=== PATIENT | female | born 1990 | race Caucasian/White ===

== ENCOUNTER 2016-07-24 13:18 | Emergency (ER) | payer OTHER ==
[2016-07-24 13:25] VITALS: TEMP 97.5
[2016-07-24 14:14] LABS: COLOR PALE YELLOW; LEUKOCYTE ESTERASE,URINE NEGATIVE (NEGATIVE); NITRITE,URINE NEGATIVE (NEGATIVE)
[2016-07-24 14:22] LABS: % IMMATURE GRANULYOCYTES 0.1 % (0.0-1.1); ABSOLUTE IMMATURE GRANULOCYTES 0.01 10^3/uL (0.00-0.10); ADD DIFF? NO; ADD MORPH? NO; ADD SCAN? NO; ATYPICAL LYMPHOCYTE FLAG 0 (0-99); FRAGMENT RBC FLAG 0 (0-99); HEMATOCRIT 43.9 % (38.0-47.0); HEMOGLOBIN 14.6 g/dL (12.6-16.3); LEFT SHIFT FLG 0 (0-99); LIPEMIA HEMOLYSIS FLAG 80 (0-99); MEAN CELL HEMOGLOBIN 30.7 pg (27.9-34.1); MEAN CELL HEMOGLOBIN CONCENTR. 33.3 g/dL (32.4-36.7); MEAN CELL VOLUME 92.4 fL (81.5-99.8); PLATELET CLUMPS FLAG 10 (0-99); PLATELET COUNT 250 10^3/uL (150-400); RED BLOOD CELL COUNT 4.75 10^6/uL (4.18-5.33); RED CELL DISTRIBUTION WIDTH 12.9 % (11.5-15.2)
[2016-07-24] MEDS ORDERED: ONDANSETRON 4 MG/2 ML VIAL IVP ONE (14:28)
[2016-07-24] MEDS ORDERED: HYDROmorphONE/DILAUDID 1 MG/ML SYR IVP ONE (14:28)
[2016-07-24 14:38] LABS: ANION GAP 13 mEq/L (8-16); CALCIUM 9.9 mg/dL (8.5-10.4); CARBON DIOXIDE 26 mEq/l (22-31); CHLORIDE 101 mEq/L (97-110); CREATININE 0.9 mg/dL (0.6-1.0); GLOMERULAR FILTRATION RATE > 60; GLUCOSE 89 mg/dL (70-100); POTASSIUM 4.1 mEq/L (3.5-5.2); SODIUM 140 mEq/L (134-144)
[2016-07-24 16:29] VITALS: BP 124/76; PULSE 78; RESP 16; O2SAT 95
--- NOTE | 2016-07-24 16:29 | EDPHY ---
H & P Time Seen by Provider: 07/24/16 14:00 HPI/ROS: HPI: 25-year-old female presents to emergency department with chief concern left lower quadrant pelvic pain. Reports 9/10 constant, sharp, cramping left pelvic pain that onset suddenly 3 days ago associated with nausea. Pain resolved yesterday and she felt fine. Pain returned upon awakening this morning and was constant and 9/10. Associated with nausea. Denies fever, chills, myalgias, URI symptoms, shortness of breath, chest pain, vomiting, diarrhea, urinary symptoms, back or flank pain, unusual vaginal discharge, recent vulvovaginal lesions, STI. LMP 10 days ago. Noted her IUD string significantly shorter in the past 2 days. No other significant past medical history. She is visiting from [place]. ROS:10 point review of systems is negative other than as stated in HPI Past Medical/Surgical History: Breast augmentation, tonsillectomy Social History: Lives in [facility] Smoking Status: Never smoked Physical Exam: Vital signs stable, reviewed by me General: Awake, alert, calm, cooperative. No acute distress. Head: Normalocephalic. Atraumatic. EENT: PERRLA. EOMI. No pallor or injection. Anicteric. No nystagmus. No injection. Neck: Supple, nontender. No lymphadenopathy. Full range of motion. No meningismus. Respiratory: Breathing unlabored. Breath sounds equal bilaterally and clear to auscultation. No adventitious sounds. CV: Chest nontender, atraumatic. Heart rate regular. No murmur, distal pulses 2+ bilaterally. Brisk cap refill all extremities. GI: Abdomen soft, the left lower quadrant pain to deep palpation without rebound or guarding. Bowel sounds normoactive and positive x4 quadrants. : No CVA or flank tenderness. Neuro: Alert. Oriented x 3. Speech clear. Nonfocal cranial nerves throughout. Sensation intact all extremities. Skin: Skin warm, dry, intact. Extremities: Full range of motion in all 4 extremities. Strength 5+ all extremities. Constitutional: Initial Vital Signs Temperature (C) 36.4 C 07/24/16 13:22 Heart Rate 74 07/24/16 13:22 Respiratory Rate 18 07/24/16 13:22 Blood Pressure 124/79 H 07/24/16 13:22 O2 Sat (%) 98 07/24/16 13:22 O2 Delivery Mode Room Air Allergies/Adverse Reactions: shellfish derived Allergy (Verified 07/24/16 13:26) Home Medications: Medication Instructions Recorded Hydrocodone/Acetaminophen [[place] 1 - 2 tab PO Q6H PRN #6 tab 07/24/16 5/325 (*)] Medical Decision Making ED Course/Re-evaluation: 25-year-old female presents to emergency department with left lower quadrant abdominal pain. Reports noticeably shorter IUD string over the past 2 days. IV started. Blood drawn. Urine obtained. Patient given 0.5 mg IV Dilaudid and 4 mg IV Zofran. 1500: After Dilaudid, pain now 2/10. She has no nausea. Ultrasound pending. 1530: Ultrasound shows a malpositioned IUD with left strut extending into the left side of the myometrium. IUD removed successfully without incident. Patient tolerated. Pain immediately relieved after removal of IUD. She has some mild cramping but the sharp left-sided pain has resolved with removal. She has been counseled regarding follow-up with primary care upon return to [place]. She agrees to do so. She has been counseled regarding when to return for worsening symptoms. Differential Diagnosis: Differential diagnosis includes but is not limited to ovarian cyst, ovarian torsion, ectopic , constipation, IUD malfunction - Data Points Laboratory Results: Laboratory Results 07/24/16 14:11 07/24/16 14:11 07/24/16 07/24/16 07/24/16 14:11 14:11 14:00 WBC 6.87 10^3/uL 10^3/uL (3.80-9.50) RBC 4.75 10^6/uL 10^6/uL (4.18-5.33) Hgb 14.6 g/dL g/dL (12.6-16.3) Hct 43.9 % % (38.0-47.0) MCV 92.4 fL fL (81.5-99.8) MCH 30.7 pg pg (27.9-34.1) MCHC 33.3 g/dL g/dL (32.4-36.7) RDW 12.9 % % (11.5-15.2) Plt Count 250 10^3/uL 10^3/uL (150-400) MPV 11.0 fL fL (8.7-11.7) Neut % (Auto) 61.1 % % (39.3-74.2) Lymph % (Auto) 31.1 % % (15.0-45.0) Gage % (Auto) 6.1 % % (4.5-13.0) Eos % (Auto) 1.0 % % (0.6-7.6) Baso % (Auto) 0.6 % % (0.3-1.7) Nucleat RBC Rel Count 0.0 % % (0.0-0.2) Absolute Neuts (auto) 4.19 10^3/uL 10^3/uL (1.70-6.50) Absolute Lymphs (auto) 2.14 10^3/uL 10^3/uL (1.00-3.00) Absolute Monos (auto) 0.42 10^3/uL 10^3/uL (0.30-0.80) Absolute Eos (auto) 0.07 10^3/uL 10^3/uL (0.03-0.40) Absolute Basos (auto) 0.04 10^3/uL 10^3/uL (0.02-0.10) Absolute Nucleated RBC 0.00 10^3/uL 10^3/uL (0-0.01) Immature Gran % 0.1 % % (0.0-1.1) Immature Gran # 0.01 10^3/uL 10^3/uL (0.00-0.10) Sodium 140 mEq/L mEq/L (134-144) Potassium 4.1 mEq/L mEq/L (3.5-5.2) Chloride 101 mEq/L mEq/L (97-110) Carbon Dioxide 26 mEq/l mEq/l (22-31) Anion Gap 13 mEq/L mEq/L (8-16) BUN 13 mg/dL mg/dL (7-23) Creatinine 0.9 mg/dL mg/dL (0.6-1.0) Estimated GFR > 60 Glucose 89 mg/dL mg/dL (70-100) Calcium 9.9 mg/dL mg/dL (8.5-10.4) Urine Color PALE YELLOW Urine Appearance CLEAR Urine pH 6.0 (5.0-7.5) Ur Specific [place] 1.010 (1.002-1.030) Urine Protein NEGATIVE (NEGATIVE) Urine Ketones NEGATIVE (NEGATIVE) Urine Blood NEGATIVE (NEGATIVE) Urine Nitrate NEGATIVE (NEGATIVE) Urine Bilirubin NEGATIVE (NEGATIVE) Urine Urobilinogen NEGATIVE EU EU (0.2-1.0) Ur Leukocyte Esterase NEGATIVE (NEGATIVE) Ur Culture Indicated? NOT INDICATED (NI) Urine Glucose NEGATIVE (NEGATIVE) Urine Test 07/24/16 14:00 WBC RBC Hgb Hct MCV MCH MCHC RDW Plt Count MPV Neut % (Auto) Lymph % (Auto) Gage % (Auto) Eos % (Auto) Baso % (Auto) Nucleat RBC Rel Count Absolute Neuts (auto) Absolute Lymphs (auto) Absolute Monos (auto) Absolute Eos (auto) Absolute Basos (auto) Absolute Nucleated RBC Immature Gran % Immature Gran # Sodium Potassium Chloride Carbon Dioxide Anion Gap BUN Creatinine Estimated GFR Glucose Calcium Urine Color Urine Appearance Urine pH Ur Specific [place] Urine Protein Urine Ketones Urine Blood Urine Nitrate Urine Bilirubin Urine Urobilinogen Ur Leukocyte Esterase Ur Culture Indicated? Urine Glucose Urine Test NEGATIVE Medications Given: Discontinued Medications Hydromorphone HCl (Dilaudid) 1 mg IVP EDNOW ONE Stop: 07/24/16 14:29 Last Admin: 07/24/16 14:36 Dose: 1 mg Ondansetron HCl (Zofran) 4 mg IVP EDNOW ONE Stop: 07/24/16 14:29 Last Admin: 07/24/16 14:36 Dose: 4 mg Departure - Departure Disposition: Home, Routine, Self-Care Clinical Impression: IUD malfunction, Pelvic pain Condition: Good Instructions: Pelvic Pain in Women (ED) Additional Instructions: Plan: No intercourse until symptoms have resolved entirely. You may use 600 mg of ibuprofen every 6 hours for fever, inflammation, or pain. Always take ibuprofen with food and stay well hydrated while taking. Do not exceed the maximum allowable dose in a 24 hour period which is 2400 mg. For severe pain may use 1-2 [place] every 6 hours--Never drink or drive while taking this medication. This medication impairs decision making capacity so do not work or sign important documents while taking. This medication its constipating so drink plenty of fluids and consider an [id number] stool softener such as docusate sodium (Colace) while taking this medication. This medication has addictive properties. You should use the least amount for the shortest amount of time. [facility] do not refill narcotic pain medication prescriptions. This is a hospital policy. You will need to follow up as indicated for recheck for further narcotic refills. For symptoms of infection including fever, worsening pain, nausea or vomiting please return promptly for recheck Otherwise, follow up with primary care when you return to [place] on Saturday without fail--When you call to schedule appointment, please let the office know you are an "ER follow up" appointment" Referrals: PREM HERNANDEZ [Other] - As per Instructions Prescriptions: Hydrocodone/Acetaminophen [[place] 5/325 (*)] 1 - 2 tab PO Q6H PRN #6 tab PRN Reason: Pain, Moderate
== END 2016-07-24 16:35 | disposition home or self-care (01) ==
DX: T83.39XA Other mechanical complication of intrauterine contraceptive device, initial encounter (principal); Y73.2 Prosthetic and other implants, materials and accessory gastroenterology and urology devices associated with adverse incidents
CPT/HCPCS: 96374; J1170; J2405